=== PATIENT | male | born 1940 | race African-American/Black ===

== ENCOUNTER 2016-11-05 19:03 | Inpatient (IN) | payer OTHER, MEDICARE ==
[~2016-11-05] VITALS: Ht 165.1 cm; Wt 86.0 kg
[2016-11-05 22:27] VITALS: PULSE 78; RESP 18; O2SAT 100
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
[2016-11-05] MEDS ORDERED: LORazepam 2 MG/ML VIAL IM ONE (23:00)
[2016-11-05] MEDS ORDERED: OLANZapine IM 10 MG VIAL IM ONE (23:00)
[2016-11-06 00:17] LABS: ALT (GPT) 19 U/L (12-78); ANION GAP 5 MEQ/L (5-15); AST (GOT) 20 U/L (15-37); BASOPHIL % 0.3 % (0.0-2.0); BICARBONATE 35.4 MEQ/L (21.0-32.0); BLOOD UREA NITROGEN 8 MG/DL (7-18); CHLORIDE 105 MEQ/L (98-107); EOSINOPHIL % 0.5 % (0.0-4.0); GLOMERULAR FILTRATION RATE 82 ML/MIN (>89); HEMATOCRIT 40.8 % (39.0-51.0); HEMO FLAGS DIFF FINAL; LYMPH % 27.9 % (9.0-44.0); LYMPHOCYTE # 1.9 TH/MM3 (1.0-4.8); MEAN CELL VOLUME 92.3 FL (80.0-100.0); MEAN CORPUSCULAR HEMOGLOBIN 31.2 PG (27.0-34.0); MEAN CORPUSCULAR HGB CONC 33.8 % (32.0-36.0); MONO % 13.5 % (0.0-8.0); NEUT % 57.8 % (16.0-70.0); PLATELET COUNT 185 TH/MM3 (150-450); POTASSIUM 3.5 MEQ/L (3.5-5.1); RED BLOOD COUNT 4.42 MIL/MM3 (4.50-5.90); RED CELL DISTRIBUTION WIDTH 13.7 % (11.6-17.2); SODIUM (NA) 145 MEQ/L (136-145); WHITE BLOOD COUNT 6.9 TH/MM3 (4.0-11.0)
[2016-11-06 00:19] LABS: ALKALINE PHOSPHATASE 111 U/L (45-117); TOTAL BILIRUBIN ADULT 0.9 MG/DL (0.2-1.0)
[2016-11-06 00:34] LABS: ACETAMINOPHEN LESS THAN 2.0 MCG/ML (10.0-30.0)
[2016-11-06 01:00] VITALS: BP 167/88; PULSE 78; RESP 16; O2SAT 99
[2016-11-06] MEDS ORDERED: LORazepam 2 MG/ML VIAL IM ONE ×2 (04:30→22:30)
[2016-11-06] MEDS ORDERED: OLANZapine IM 10 MG VIAL IM ONE ×2 (04:30→22:30)
[2016-11-06 05:00] VITALS: BP 171/86; PULSE 84; RESP 16; O2SAT 97
[2016-11-06 05:09] LABS: BLOOD, URINE TRACE (NEG); COMMENT (UR) CULT NOT INDICATED; CULTURE IF INDICATED CULT NOT INDICATED; GLUCOSE,URINE TRACE mg/dL (NEG); KETONE, URINE NEG (NEG); MUCUS URINE FEW /lpf (OCC); NITRITE,URINE NEG (NEG); PH, URINE 6.5 (5.0-8.5); SQUAMOUS EPITHELIAL CELL URINE <1 /hpf (0-5); URINE COLOR YELLOW (YELLW/STRAW)
[2016-11-06] MEDS ORDERED: ACETAMINOPHEN 325 MG TAB PO PRN (10:00)
[2016-11-06] MEDS ORDERED: MAGNESIUM HYDROXIDE SUSP 30 ML CUP PO PRN (10:00)
[2016-11-06] MEDS ORDERED: ALUMINUM/MAGNESIUM/SIMETH 30 ML CUP PO PRN (10:00)
[2016-11-06 11:00] VITALS: BP 190/90; PULSE 55; RESP 16; TEMP 97.6; O2SAT 95
[2016-11-06] MEDS: NICOTINE 21 MG/24 HR PATCH T-DERMAL SCH (12:00)
[2016-11-06 18:00] VITALS: BP 137/70; PULSE 66; TEMP 97.8; O2SAT 97
[2016-11-06] MEDS: REMOVE OLD NICOTINE PATCH T-DERMAL SCH (21:00)
[2016-11-06] MEDS ORDERED: OLANZapine IM 10 MG VIAL IM SCH (22:45)
[2016-11-06] MEDS ORDERED: LORazepam 2 MG/ML VIAL IM SCH (22:45)
[2016-11-07 05:39] VITALS: BP 170/74; PULSE 72; RESP 18; TEMP 97.4
[2016-11-07] MEDS: NICOTINE 21 MG/24 HR PATCH T-DERMAL SCH (09:00)
[2016-11-07] MEDS ORDERED: cloNIDine HCL 0.2 MG TAB PO ONE (13:30)
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
[2016-11-07] MEDS: REMOVE OLD NICOTINE PATCH T-DERMAL SCH (20:26)
[2016-11-08 05:35] VITALS: BP 148/56; PULSE 53; RESP 18; TEMP 98.1; O2SAT 99
[2016-11-08] MEDS: NICOTINE 21 MG/24 HR PATCH T-DERMAL SCH (09:00)
[2016-11-08] MEDS: REMOVE OLD NICOTINE PATCH T-DERMAL SCH (09:26)
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
[2016-11-08 18:00] VITALS: PULSE 82; RESP 18; TEMP 98.1; O2SAT 96
[2016-11-08] MEDS: OLANZapine ODT 5 MG TAB PO SCH (22:22)
[2016-11-09] MEDS: NICOTINE 21 MG/24 HR PATCH T-DERMAL SCH (09:00)
[2016-11-09] MEDS: OLANZapine ODT 5 MG TAB PO SCH ×2 (09:00→21:00)
--- NOTE | 2016-11-09 13:10 | HHI.PYPN ---
Subjective Remarks Patient seen in dayroom with medical student Chetan, patient continues confused disoriented though alert pleasant at this time. Compliant medications. For now continue treatment Review of Systems Except as stated in HPI: all other systems reviewed are Neg Objective Alert: Yes [place]: Person Mood: Anxious, Calm (vaguely) Affect: Other (good range and intensity of his affect) Memory Intact: Comment (very poor) Hallucinations: Other (denies) Delusions: No Delusion Type: Other (somewhat vigilant) Suicidal: Ideation (denies) Homicidal: Ideation (denies) Insight/Judgment Poor Vitals/IOs Vital Signs Date Time Temp Pulse Resp B/P Pulse Ox O2 Delivery O2 Flow Rate FiO2 11/08/16 18:00 98.1 82 18 96 11/08/16 05:35 148/56 11/06/16 05:00 Room Air Intake and Output 11/08/16 11/08/16 11/09/16 08:00 16:00 00:00 Intake Total 0 ml 240 ml 600 ml Output Total 2 ml Balance 0 ml 240 ml 598 ml Assessment & Plan Problem List: (1) Dementia ICD Code: F03.90 Assessment & Plan Estimated LOS: days patient continues to Mentadent confused though no significant behavioral problems at this time, compliant medications. Justification for Cont. Inpt. This time patient will decompensate the placed in the lower level of care Discharge Planning To be determined Problem Qualifiers (1) Dementia: Qualified Code: G30.1 - Late onset Alzheimer's disease without behavioral disturbance Gregorio Haile MD Nov 09, 2016 13:10
[2016-11-09 17:46] VITALS: BP 149/77; PULSE 63; RESP 20; O2SAT 96
[2016-11-09] MEDS: REMOVE OLD NICOTINE PATCH T-DERMAL SCH (21:00)
[2016-11-10] MEDS: NICOTINE 21 MG/24 HR PATCH T-DERMAL SCH (09:00)
[2016-11-10] MEDS: OLANZapine ODT 5 MG TAB PO SCH ×3 (09:37→21:22)
--- NOTE | 2016-11-10 11:20 | HHI.PYPN ---
Subjective Remarks Patient seen in day room with nurse cally, patient alert diffusely confused somewhat more verbal with rapid somewhat pressured speech markedly disorganized. Focused somewhat on his possessions and his money. Needed reassurance by the staff that he was safe in our security department. Patient compliant medication Review of Systems Except as stated in HPI: all other systems reviewed are Neg Objective Alert: Yes [place]: Person Mood: Anxious, Calm (vaguely) Affect: Other (good range and intensity of his affect) Memory Intact: Comment (very poor) Hallucinations: Other (denies) Delusions: No Delusion Type: Other (somewhat vigilant) Suicidal: Ideation (denies) Homicidal: Ideation (denies) Insight/Judgment Poor Vitals/IOs Vital Signs Date Time Temp Pulse Resp B/P Pulse Ox O2 Delivery O2 Flow Rate FiO2 11/09/16 17:46 63 20 149/77 96 11/08/16 18:00 98.1 Intake and Output 11/09/16 11/09/16 11/10/16 08:00 16:00 00:00 Intake Total 120 ml 720 ml 1950 ml Balance 120 ml 720 ml 1950 ml Assessment & Plan Problem List: (1) Dementia ICD Code: F03.90 Assessment & Plan Estimated LOS: days patient continues confused and demented with episodes of some mild increased irritability though he is redirectable. For now continue treatment Justification for Cont. Inpt. 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
[2016-11-10 18:00] VITALS: BP 154/69; PULSE 74; RESP 19; TEMP 90; O2SAT 98
[2016-11-10] MEDS: REMOVE OLD NICOTINE PATCH T-DERMAL SCH (21:00)
[2016-11-11 06:05] VITALS: BP 97/58; PULSE 57; RESP 18; TEMP 98.5; O2SAT 97
[2016-11-11] MEDS: NICOTINE 21 MG/24 HR PATCH T-DERMAL SCH (08:23)
[2016-11-11] MEDS: OLANZapine ODT 5 MG TAB PO SCH ×3 (09:00→17:13)
--- NOTE | 2016-11-11 10:20 | HHI.PYPN ---
Subjective Remarks [place] retained by Flake Drier Duane, chart review, patient continues markedly confused disoriented with rapid pressured speech that is markedly disorganized. There is a vigilance and irritability that lavers this though he said no physical he assaultive behaviors. Will increase Zyprexa to 5 mg 3 times a day Review of Systems Except as stated in HPI: all other systems reviewed are Neg Objective Alert: Yes [place]: Person Mood: Anxious, Calm (vaguely) Affect: Other (good range and intensity of his affect) Memory Intact: Comment (very poor) Hallucinations: Other (denies) Delusions: No Delusion Type: Other (somewhat vigilant) Suicidal: Ideation (denies) Homicidal: Ideation (denies) Insight/Judgment Very poor Vitals/IOs Vital Signs Date Time Temp Pulse Resp B/P Pulse Ox O2 Delivery O2 Flow Rate FiO2 11/11/16 06:05 98.5 57 18 97/58 97 Intake and Output 11/10/16 11/10/16 11/11/16 08:00 16:00 00:00 Intake Total 240 ml 240 ml 720 ml Balance 240 ml 240 ml 720 ml Assessment & Plan Problem List: (1) Dementia ICD Code: F03.90 Assessment & Plan Estimated LOS: days patient continues demented confused with rapid pressured speech some mild irritability and intrusiveness needing frequent redirection. She medication adjustment above Justification for Cont. Inpt. 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
[2016-11-11] MEDS: LORazepam 2 MG/ML VIAL - age > 65 yrs IM PRN (14:10)
[2016-11-11 20:50] VITALS: BP 145/71; PULSE 74; RESP 18; TEMP 98.4; O2SAT 98
[2016-11-12 04:41] VITALS: BP 136/68; PULSE 72; RESP 17; TEMP 100.5; O2SAT 93
[2016-11-12 06:09] VITALS: BP 136/68; PULSE 72; RESP 17; TEMP 100.5; O2SAT 93
[2016-11-12] MEDS: OLANZapine ODT 5 MG TAB PO SCH (09:00)
[2016-11-12 10:29] VITALS: TEMP 97.9
--- NOTE | 2016-11-12 12:07 | HHI.PYPN ---
Subjective Remarks Patient seen in day room with nurse Yolanda and medical student Chetan. Chart reviewed Patient showing noncompliance with medication. He continues intrusive perseverative marked paranoid overlay. Will decrease Zyprexa to 10 mg twice a day orally and refuses that 10 mg IM in its place Review of Systems Except as stated in HPI: all other systems reviewed are Neg Objective Alert: Yes [place]: Person Mood: Anxious, Calm (vaguely) Affect: Other (good range and intensity of his affect) Memory Intact: Comment (very poor) Hallucinations: Other (denies) Delusions: No Delusion Type: Other (somewhat vigilant) Suicidal: Ideation (denies) Homicidal: Ideation (denies) Insight/Judgment Very poor Vitals/IOs Vital Signs Date Time Temp Pulse Resp B/P Pulse Ox O2 Delivery O2 Flow Rate FiO2 11/12/16 10:29 97.9 11/12/16 06:09 72 17 136/68 93 Intake and Output 11/11/16 11/11/16 11/12/16 08:00 16:00 00:00 Intake Total 0 ml 360 ml 720 ml Balance 0 ml 360 ml 720 ml Assessment & Plan Problem List: (1) Dementia ICD Code: F03.90 Assessment & Plan Estimated LOS: days patient continues somewhat psychotic delusional intrusive and labile. She medication adjustment above Justification for Cont. Inpt. 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
[2016-11-12] MEDS: OLANZapine ODT 10 MG TAB PO SCH ×2 (13:00→22:37)
[2016-11-12] MEDS ORDERED: OLANZapine IM 10 MG VIAL IM PRN (13:00)
[2016-11-12 17:54] VITALS: BP 154/77; PULSE 76; RESP 16; TEMP 97.8; O2SAT 99
[2016-11-13 05:56] VITALS: BP 131/65; PULSE 53; RESP 18; TEMP 98.3; O2SAT 99
[2016-11-13] MEDS: OLANZapine ODT 10 MG TAB PO SCH ×4 (10:12→21:17)
--- NOTE | 2016-11-13 12:48 | HHI.PYPN ---
Subjective Remarks Patient was seen and case discussed with nursing. Patient is alert and oriented 1. He is pressured with flight of ideas. When asked about suicidal thoughts he is irritable and paranoid and religiously preoccupied. Denies suicidal thoughts and is angry that I would ask. Compliant with his medications. Objective Alert: Yes [place]: Person Mood: Agitated Affect: Labile Memory Intact: Comment (very poor) Hallucinations: Other (denies) Delusions: No Delusion Type: Other (somewhat vigilant) Suicidal: Ideation (denies) Homicidal: Ideation (denies) Insight/Judgment Poor Vitals/IOs Vital Signs Date Time Temp Pulse Resp B/P Pulse Ox O2 Delivery O2 Flow Rate FiO2 11/13/16 05:56 98.3 53 18 131/65 99 Intake and Output 11/12/16 11/12/16 11/13/16 08:00 16:00 00:00 Intake Total 3540 ml 480 ml Balance 3540 ml 480 ml Assessment & Plan Problem List: (1) Dementia ICD Code: F03.90 Assessment & Plan Continue current treatment plan Justification for Cont. Inpt. 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
[2016-11-13 19:41] VITALS: BP 161/84; PULSE 68; RESP 18; O2SAT 99
[2016-11-14 06:16] VITALS: BP 139/66; PULSE 67; RESP 17; TEMP 99.1; O2SAT 99
[2016-11-14] MEDS: OLANZapine ODT 10 MG TAB PO SCH ×2 (08:45→21:00)
--- NOTE | 2016-11-14 12:50 | HHI.PYPN ---
Subjective Remarks Patient was seen and case discussed with nursing. Patient continues to be exit seeking. He continues to be hyperverbal and has difficulty answering questions appropriately. Continues to think that him and his built part of this hospital. Is alert and oriented 2, does not know the date and president. His compliant with his medications. Behaving well on the unit Objective Alert: Yes Ward: Person, Place Mood: Calm Affect: Labile Memory Intact: Comment (very poor) Hallucinations: Other (denies) Delusions: No Delusion Type: Other (somewhat vigilant) Suicidal: Ideation (denies) Homicidal: Ideation (denies) Insight/Judgment Poor Vitals/IOs Vital Signs Date Time Temp Pulse Resp B/P Pulse Ox O2 Delivery O2 Flow Rate FiO2 11/14/16 06:16 99.1 67 17 139/66 99 Intake and Output 11/13/16 11/13/16 11/14/16 08:00 16:00 00:00 Intake Total 480 ml 1080 ml Balance 480 ml 1080 ml Assessment & Plan Problem List: (1) Dementia ICD Code: F03.90 Assessment & Plan Continue current treatment plan Justification for Cont. Inpt. Patient will decompensate in a less restrictive setting Problem Qualifiers (1) Dementia: Qualified Code: G30.1 - Late onset Alzheimer's disease without behavioral disturbance Anuel Leon DO Nov 14, 2016 12:50
--- NOTE | 2016-11-15 08:24 | HHI.PYPN ---
Subjective Remarks Patient seen in day room with nurse Erica, is calm with me. Continues hyper verbal with perseveration on his vehicle, his money, and I'll he sees people are treating him. However his mis behaviors are essentially verbal. He is no physical aggression noted that at times he appears somewhat intimidating. Staff states this behaviors occur more towards afternoon and evening. Will adjust dosage and timing of Zyprexa to 10 mg by mouth at noon and at 6 PM. And if he refuses to be given Zyprexa 10 mg IM in its place Review of Systems Except as stated in HPI: all other systems reviewed are Neg Objective Alert: Yes [place]: Person, Place Mood: Calm Affect: Labile Memory Intact: Comment (very poor) Hallucinations: Other (denies) Delusions: No Delusion Type: Other (somewhat vigilant) Suicidal: Ideation (denies) Homicidal: Ideation (denies) Insight/Judgment Very poor Vitals/IOs Vital Signs Date Time Temp Pulse Resp B/P Pulse Ox O2 Delivery O2 Flow Rate FiO2 11/14/16 06:16 99.1 67 17 139/66 99 Intake and Output 11/14/16 11/14/16 11/15/16 08:00 16:00 00:00 Intake Total 0 ml 1920 ml Balance 0 ml 1920 ml Assessment & Plan Problem List: (1) Dementia ICD Code: F03.90 Assessment & Plan Estimated LOS: days patient continues markedly confused and demented, intrusive loud and paranoid. She medication adjustments above Justification for Cont. Inpt. 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
[2016-11-15] MEDS: OLANZapine ODT 10 MG TAB PO SCH ×2 (12:00→17:43)
--- NOTE | 2016-11-15 12:09 | PD.TTN ---
Present for Treatment Team Treatment Team Staff: Provider, Nurse, Psych Therapist, Occupational Therapist Patient Problems 1. Discharge planning 2. Medication compliance 3. Knowledge deficit 4. Lack of coping skills Progress Toward Goals Provider Input: Patient is anxious, refusing his medication, family will need to be contact Nurse Input: Patient is verabally aggressive, with an agitated mood, pacing and seeking an exit. Psych Therapist Input: Counselor will contact Rose Marie Martin acting POA while Berna Coles is in the to discuss discharge Occupational Therapist Input: Patient is too restless and agitated to participate with activities. Elysia Bermudez [facility] Nov 15, 2016 12:09
[2016-11-15] MEDS: OLANZapine IM 10 MG VIAL IM SCH ×2 (12:47→17:44)
[2016-11-15 18:00] VITALS: BP 148/76; PULSE 79; RESP 18; O2SAT 100
[2016-11-15] MEDS: LORazepam 0.5 MG TAB age > 65 yrs PO PRN (20:29)
[2016-11-15 21:30] VITALS: BP 88/81; PULSE 60; RESP 14; O2SAT 97
--- NOTE | 2016-11-16 08:36 | HHI.PYPN ---
Subjective Remarks Patient seen in [place] with nurse Erica and medical student: This, patient continues to perseverate about his van which located that he needs to inspected the make sure that it's okay. Staff states his focus on that appears somewhat obsessive to. He also has shown some poor hygiene and not showering in a number of days. Staff are working with him to get in the shower. Otherwise patient continues diffusely confused at times little bit irritable but no other behavioral issues. Will add Prozac 20 mg of the liquid preparation daily. Review of Systems Except as stated in HPI: all other systems reviewed are Neg Objective Alert: Yes [place]: Person, Place Mood: Calm Affect: Labile Memory Intact: Comment (very poor) Hallucinations: Other (denies) Delusions: No Delusion Type: Other (somewhat vigilant) Suicidal: Ideation (denies) Homicidal: Ideation (denies) Insight/Judgment Very poor Vitals/IOs Vital Signs Date Time Temp Pulse Resp B/P Pulse Ox O2 Delivery O2 Flow Rate FiO2 11/15/16 21:30 60 14 88/81 97 11/14/16 06:16 99.1 Intake and Output 11/15/16 11/15/16 11/16/16 08:00 16:00 00:00 Intake Total 720 ml 2160 ml Balance 720 ml 2160 ml Assessment & Plan Problem List: (1) Dementia ICD Code: F03.90 Assessment & Plan Estimated LOS: days patient continues demented and confused, continues to focus a perseverate on his van. She medication adjustment above Justification for Cont. Inpt. 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
[2016-11-16] MEDS: FLUoxetine HCL LIQUID 20 MG/5 ML CUP PO SCH (09:00)
[2016-11-16] MEDS: OLANZapine IM 10 MG VIAL IM SCH ×2 (12:00→18:00)
[2016-11-16] MEDS: OLANZapine ODT 10 MG TAB PO SCH ×2 (12:33→18:09)
[2016-11-16 18:38] VITALS: BP 146/66; PULSE 85; RESP 18; O2SAT 95
[2016-11-17 04:53] VITALS: BP 129/57; PULSE 59; RESP 16; TEMP 98; O2SAT 95
[2016-11-17] MEDS: FLUoxetine HCL LIQUID 20 MG/5 ML CUP PO SCH (09:00)
--- NOTE | 2016-11-17 10:16 | HHI.PYPN ---
Subjective Remarks Patient seen in his room with nurse Hortensia counselor Susan. Chart review. Patient continues to perseverate about his van and his money becoming somewhat loud and irritable though there is no physical confrontation her physical behaviors noted. Is showing mixed compliance with his medication needing some encouragement by the nurses from to be compliant Review of Systems Except as stated in HPI: all other systems reviewed are Neg Objective Alert: Yes [place]: Person, Place Mood: Calm Affect: Labile Memory Intact: Comment (very poor) Hallucinations: Other (denies) Delusions: No Delusion Type: Other (somewhat vigilant) Suicidal: Ideation (denies) Homicidal: Ideation (denies) Insight/Judgment Poor Vitals/IOs Vital Signs Date Time Temp Pulse Resp B/P Pulse Ox O2 Delivery O2 Flow Rate FiO2 11/17/16 04:53 98.0 59 16 129/57 95 Intake and Output 11/16/16 11/16/16 11/16/16 07:59 15:59 23:59 Intake Total 240 ml 1680 ml Balance 240 ml 1680 ml Assessment & Plan Problem List: (1) Dementia ICD Code: F03.90 Assessment & Plan Estimated LOS: days patient continues confused disoriented, with some irritability related to his perseveration related to his van and his finances. For now continue treatment Justification for Cont. Inpt. At this time patient will decompensate the placed at a lower level of care Discharge Planning To be determined Problem Qualifiers (1) Dementia: Qualified Code: G30.1 - Late onset Alzheimer's disease without behavioral disturbance Gregorio Haile MD Nov 17, 2016 10:16
[2016-11-17] MEDS: OLANZapine ODT 10 MG TAB PO SCH ×2 (10:39→18:00)
[2016-11-17] MEDS: OLANZapine IM 10 MG VIAL IM SCH ×2 (10:39→18:00)
[2016-11-17 18:00] VITALS: BP 153/69; PULSE 85; RESP 19; TEMP 97.5; O2SAT 99
[2016-11-18 06:24] VITALS: BP 123/64; PULSE 70; RESP 19; TEMP 98.9; O2SAT 96
[2016-11-18] MEDS: FLUoxetine HCL LIQUID 20 MG/5 ML CUP PO SCH (08:54)
--- NOTE | 2016-11-18 10:28 | HHI.PYPN ---
Subjective Remarks Patient seen in day room with nurse Neeta and medical student Chetan, chart reviewed, patient compliant with medications though at times needs encouragement. He continues to perseverate on his plan. And financial issues. Though is somewhat softer less intrusive today Review of Systems Except as stated in HPI: all other systems reviewed are Neg Objective Alert: Yes [place]: Person, Place Mood: Calm Affect: Labile Memory Intact: Comment (very poor) Hallucinations: Other (denies) Delusions: No Delusion Type: Other (somewhat vigilant) Suicidal: Ideation (denies) Homicidal: Ideation (denies) Insight/Judgment Very poor Vitals/IOs Vital Signs Date Time Temp Pulse Resp B/P Pulse Ox O2 Delivery O2 Flow Rate FiO2 11/18/16 06:24 98.9 70 19 123/64 96 Intake and Output 11/17/16 11/17/16 11/18/16 08:00 16:00 00:00 Intake Total 480 ml 0 ml Balance 480 ml 0 ml Assessment & Plan Problem List: (1) Dementia ICD Code: F03.90 Assessment & Plan Estimated LOS: days patient continues demented and confused, somewhat intense and perseverative. But less intrusive today continues compliant medications with encouragement Justification for Cont. Inpt. 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
[2016-11-18] MEDS: OLANZapine ODT 10 MG TAB PO SCH ×2 (12:00→18:00)
[2016-11-18] MEDS: OLANZapine IM 10 MG VIAL IM SCH ×2 (12:00→18:00)
[2016-11-18 19:34] VITALS: BP 132/61; PULSE 73; RESP 19; TEMP 98.8; O2SAT 96
[2016-11-19] MEDS: FLUoxetine HCL LIQUID 20 MG/5 ML CUP PO SCH (08:34)
[2016-11-19] MEDS ORDERED: OLANZapine IM 10 MG VIAL IM PRN (09:57)
[2016-11-19] MEDS: OLANZapine ODT 10 MG TAB PO SCH ×2 (11:39→17:36)
[2016-11-19] MEDS ORDERED: LORazepam 2 MG/ML VIAL IM STA (15:27)
[2016-11-19] MEDS ORDERED: HALOPERIDOL LACTATE 5 MG/ML AMP IM STA (15:27)
--- NOTE | 2016-11-19 15:40 | HHI.PYPN ---
Subjective Remarks Patient seen in dayroom barricaded himself behind chairs. Prior to this staff was offering patient up when necessary he became more and more angry refuse to go to his room refuse a cooperative the staff he pushed she didn't hit to the staff. Prior to barricaded himself the day room. I feel at the present time patient behaviors putting himself and other patients had significant serious risk thus have ordered Haldol 10 mg IM and Ativan 1 mg IM to be given now patient to be transferred to the 2700 unit for the safety of the staff the other patient's and himself Review of Systems Except as stated in HPI: all other systems reviewed are Neg Objective Alert: Yes [place]: Person, Place Mood: Agitated, Angry, Calm, Oppositional Affect: Labile, Other (increase range intensity of his affect) Memory Intact: Comment (very poor) Hallucinations: Other (denies) Delusions: No Delusion Type: Other (somewhat vigilant) Suicidal: Ideation (denies) Homicidal: Ideation (denies) Insight/Judgment Very poor Vitals/IOs Vital Signs Date Time Temp Pulse Resp B/P Pulse Ox O2 Delivery O2 Flow Rate FiO2 11/18/16 19:34 98.8 73 19 132/61 96 Intake and Output 11/18/16 11/18/16 11/18/16 07:59 15:59 23:59 Intake Total 960 ml 720 ml Balance 960 ml 720 ml Assessment & Plan Problem List: (1) Dementia ICD Code: F03.90 Assessment & Plan Estimated LOS: days patient remains confused demented though with increased anger agitation aggressive assaultive behavior. Necessitating ETO at this time , necessitating transfer to 2700 unit for his safety and the safety of staff and other patient's Justification for Cont. Inpt. This time patient decompensate and placed in a lower level of care Discharge Planning To be determined Problem Qualifiers (1) Dementia: Qualified Code: G30.1 - Late onset Alzheimer's disease without behavioral disturbance Gregorio Haile MD Nov 19, 2016 15:40
[2016-11-20 04:00] VITALS: BP 157/76; PULSE 73; RESP 18; TEMP 96.9; O2SAT 97
[2016-11-20] MEDS: FLUoxetine HCL LIQUID 20 MG/5 ML CUP PO SCH (08:54)
[2016-11-20] MEDS: OLANZapine ODT 10 MG TAB PO SCH ×2 (11:43→16:56)
[2016-11-20 18:00] VITALS: BP 160/74; PULSE 73; RESP 18; TEMP 98.3; O2SAT 98
[2016-11-21] MEDS: FLUoxetine HCL LIQUID 20 MG/5 ML CUP PO SCH (08:42)
[2016-11-21] MEDS: OLANZapine ODT 10 MG TAB PO SCH ×2 (11:34→18:00)
--- NOTE | 2016-11-21 14:18 | HHI.PYPN ---
Subjective Remarks Pt seen and discussed with staff. He slept through the night and has been calm and cooperative today. He is religiously preoccupied during exam and sstates the work of the devil is around us all. No SI/HI Objective Alert: Yes [place]: Person, Place Mood: Calm Affect: Restricted Memory Intact: Comment (very poor) Hallucinations: Other (denies) Delusions: No Delusion Type: Other (somewhat vigilant) Suicidal: Ideation (denies) Homicidal: Ideation (denies) Insight/Judgment poor Vitals/IOs Vital Signs Date Time Temp Pulse Resp B/P Pulse Ox O2 Delivery O2 Flow Rate FiO2 11/20/16 18:00 98.3 73 18 160/74 98 Intake and Output 11/20/16 11/20/16 11/21/16 08:00 16:00 00:00 Intake Total 720 ml 240 ml Balance 720 ml 240 ml Assessment & Plan Problem List: (1) Dementia ICD Code: F03.90 Assessment & Plan Continue current tx plan. Estimated LOS: days Justification for Cont. Inpt. 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
[2016-11-22] MEDS: FLUoxetine HCL LIQUID 20 MG/5 ML CUP PO SCH (08:01)
[2016-11-22] MEDS: OLANZapine ODT 10 MG TAB PO SCH ×3 (11:38→16:40)
--- NOTE | 2016-11-22 12:20 | PD.TTN ---
Present for Treatment Team Treatment Team Staff: Provider (Dr. Haile), Psych Therapist (TIM Epps), Ancillary Staff (Rec. Cassandra Therapy) Patient Problems 1. Discharge planning 2. Medication compliance 3. Knowledge deficit 4. Lack of coping skills Progress Toward Goals Provider Input: Dr. Haile reported the patient's mental status remains unchanged. According to Dr. Haile the patient was escorted to the 2700 unit over the weeknd due to aggressive behavior towards staff. Patient was able to calm down and was escorted abck to 2500 after receiving an injection and calming himself on the 2700 unit. Psych Therapist Input: Counselor reported the patient continues to be obsessed with the location of his van and his money. Patient is unable to be reassured that his posessions are safe. He is selectively compliant with medications. Ancillary Staff Input: Nicky reported the patient is not attending recreational threapy activities. Documentation Scribe: TIM Epps Date Resolved: Nov 22, 2016 Susan Toledo Nov 22, 2016 12:19
--- NOTE | 2016-11-22 14:08 | HHI.PYPN ---
Subjective Remarks Patient discussed with treatment team, patient seen in day room with nurse bernardo ordonez , chart reviewed. Patient continues to perseverate on his finances and his van. Also showing marked reluctance to be cooperative with medication. Thus we are unable to give appropriate medication consistently. Need to consider alternatives. Review of Systems Except as stated in HPI: all other systems reviewed are Neg Objective Alert: Yes [place]: Person, Place Mood: Calm Affect: Restricted Memory Intact: Comment (very poor) Hallucinations: Other (denies) Delusions: No Delusion Type: Other (somewhat vigilant) Suicidal: Ideation (denies) Homicidal: Ideation (denies) Insight/Judgment Very poor Vitals/IOs Vital Signs Date Time Temp Pulse Resp B/P Pulse Ox O2 Delivery O2 Flow Rate FiO2 11/20/16 18:00 98.3 73 18 160/74 98 Intake and Output 11/21/16 11/21/16 11/22/16 08:00 16:00 00:00 Intake Total 1440 ml 240 ml Balance 1440 ml 240 ml Assessment & Plan Problem List: (1) Dementia ICD Code: F03.90 Assessment & Plan Estimated LOS: days patient continues significantly confused disoriented at times labile intrusive and somewhat intimidating. He also remains mixed compliance medication. Justification for Cont. Inpt. At this time patient will decompensate if placed on a lower level of care Discharge Planning To be determined Problem Qualifiers (1) Dementia: Qualified Code: G30.1 - Late onset Alzheimer's disease without behavioral disturbance Gregorio Haile MD Nov 22, 2016 14:08
[2016-11-22] MEDS: LORazepam 0.5 MG TAB age > 65 yrs PO PRN (15:09)
[2016-11-22 18:00] VITALS: BP 176/67; PULSE 80; RESP 18; O2SAT 97
[2016-11-22 20:00] VITALS: BP 123/56; PULSE 55; RESP 18; O2SAT 98
[2016-11-23] MEDS: FLUoxetine HCL LIQUID 20 MG/5 ML CUP PO SCH (09:04)
--- NOTE | 2016-11-23 10:56 | RADRPT ---
EXAM DATE/TIME: 11/23/2016 10:21 [place] COMPARISON: No previous studies available for comparison. INDICATIONS : Patient is short of breath. MEDICAL HISTORY : None. SURGICAL HISTORY : None. ENCOUNTER: Initial ACUITY: 1 day PAIN SCORE: 0/10 LOCATION: Bilateral chest FINDINGS: A single view of the chest demonstrates the lungs to be symmetrically aerated without evidence of mas s, infiltrate or effusion. The cardiomediastinal contours are unremarkable. Osseous structures demo nstrate degenerative changes in the a.c. joints and shoulders bilaterally. CONCLUSION: 1. No acute cardiopulmonary findings. Wenceslao Bashir MD on November 23, 2016 at 10:54 Board Certified Radiologist. This report was verified electronically.
--- NOTE | 2016-11-23 11:29 | HHI.PYPN ---
Subjective Remarks Patient seen in his room with nurse Daphnie, chart reviewed. Patient continues delusional focusing on his van and finances though today he is some more spiritual in his focus saying he is living at all in the hands of Shantanu. For now will increase oral Zyprexa to 15 mg twice a day continue IM at 10 mg if he refuses the oral Review of Systems Except as stated in HPI: all other systems reviewed are Neg Objective Alert: Yes [place]: Person, Place Mood: Calm Affect: Restricted Memory Intact: Comment (very poor) Hallucinations: Other (denies) Delusions: No Delusion Type: Other (somewhat vigilant) Suicidal: Ideation (denies) Homicidal: Ideation (denies) Insight/Judgment Very poor Vitals/IOs Vital Signs Date Time Temp Pulse Resp B/P Pulse Ox O2 Delivery O2 Flow Rate FiO2 11/22/16 20:00 55 18 123/56 98 11/20/16 18:00 98.3 Intake and Output 11/22/16 11/22/16 11/22/16 07:59 15:59 23:59 Intake Total 600 ml 960 ml 600 ml Balance 600 ml 960 ml 600 ml Assessment & Plan Problem List: (1) Dementia ICD Code: F03.90 Assessment & Plan Estimated LOS: days patient continues confused demented at times somewhat aggressive and intimidating. See medication adjustment above Justification for Cont. Inpt. At this time patient will decompensate if placed in a lower level of care Discharge Planning To be determined Problem Qualifiers (1) Dementia: Qualified Code: G30.1 - Late onset Alzheimer's disease without behavioral disturbance Gregorio Haile MD Nov 23, 2016 11:29
[2016-11-23] MEDS: OLANZapine ODT 15 MG TAB PO SCH ×2 (12:00→17:56)
[2016-11-23] MEDS: OLANZapine IM 10 MG VIAL IM SCH ×2 (12:00→17:56)
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
[2016-11-24] MEDS: FLUoxetine HCL LIQUID 20 MG/5 ML CUP PO SCH (08:17)
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
[2016-11-24 09:50] LABS: BASOPHIL % 0.3 % (0.0-2.0); EOSINOPHIL # 0.1 TH/MM3 (0-0.4); EOSINOPHIL % 1.6 % (0.0-4.0); HEMATOCRIT 42.1 % (39.0-51.0); HEMO FLAGS DIFF FINAL; LYMPH % 44.4 % (9.0-44.0); LYMPHOCYTE # 2.1 TH/MM3 (1.0-4.8); MEAN CELL VOLUME 92.2 FL (80.0-100.0); MEAN CORPUSCULAR HEMOGLOBIN 30.8 PG (27.0-34.0); MEAN CORPUSCULAR HGB CONC 33.4 % (32.0-36.0); MONO % 12.2 % (0.0-8.0); NEUT % 41.5 % (16.0-70.0); PLATELET COUNT 198 TH/MM3 (150-450); RED BLOOD COUNT 4.56 MIL/MM3 (4.50-5.90); RED CELL DISTRIBUTION WIDTH 13.2 % (11.6-17.2); WHITE BLOOD COUNT 4.8 TH/MM3 (4.0-11.0)
[2016-11-24 10:13] LABS: ANION GAP 8 MEQ/L (5-15); AST (GOT) 22 U/L (15-37); BICARBONATE 28.1 MEQ/L (21.0-32.0); BLOOD UREA NITROGEN 13 MG/DL (7-18); CHLORIDE 103 MEQ/L (98-107); GLOMERULAR FILTRATION RATE 118 ML/MIN (>89); POTASSIUM 3.8 MEQ/L (3.5-5.1); SODIUM (NA) 139 MEQ/L (136-145)
[2016-11-24 10:15] LABS: ALT (GPT) 20 U/L (12-78)
[2016-11-24 10:24] LABS: ALKALINE PHOSPHATASE 97 U/L (45-117); HDL CHOLESTEROL 67.9 MG/DL (40.0-60.0); LDL CHOLESTEROL 121 MG/DL (0-99); TOTAL BILIRUBIN ADULT 0.7 MG/DL (0.2-1.0)
[2016-11-24] MEDS: OLANZapine ODT 15 MG TAB PO SCH ×2 (12:00→17:16)
[2016-11-24] MEDS: OLANZapine IM 10 MG VIAL IM SCH ×2 (12:00→17:16)
--- NOTE | 2016-11-24 14:50 | HHI.PYPN ---
Subjective Remarks Patient seen in day room with nurse Neeta, chart review, patient showing some improvement in his compliance with medication. Patient continues markedly confused disoriented, continues to perseverate on his van. And his money. Patient showing no insight at all at times is somewhat difficult to redirect at times is somewhat intimidating and intrusive Review of Systems Except as stated in HPI: all other systems reviewed are Neg Objective Alert: Yes [place]: Person, Place Mood: Calm Affect: Restricted Memory Intact: Comment (very poor) Hallucinations: Other (denies) Delusions: No Delusion Type: Other (somewhat vigilant) Suicidal: Ideation (denies) Homicidal: Ideation (denies) Insight/Judgment Very poor Labs Test 11/24/16 08:01 White Blood Count 4.8 TH/MM3 Red Blood Count 4.56 MIL/MM3 Hemoglobin 14.1 GM/DL Hematocrit 42.1 % Mean Corpuscular Volume 92.2 FL Mean Corpuscular Hemoglobin 30.8 PG Mean Corpuscular Hemoglobin 33.4 % Concent Red Cell Distribution Width 13.2 % Platelet Count 198 TH/MM3 Mean Platelet Volume 9.1 FL Neutrophils (%) (Auto) 41.5 % Lymphocytes (%) (Auto) 44.4 % Monocytes (%) (Auto) 12.2 % Eosinophils (%) (Auto) 1.6 % Basophils (%) (Auto) 0.3 % Neutrophils # (Auto) 2.0 TH/MM3 Lymphocytes # (Auto) 2.1 TH/MM3 Monocytes # (Auto) 0.6 TH/MM3 Eosinophils # (Auto) 0.1 TH/MM3 Basophils # (Auto) 0.0 TH/MM3 CBC Comment DIFF FINAL Differential Comment Sodium Level 139 MEQ/L Potassium Level 3.8 MEQ/L Chloride Level 103 MEQ/L Carbon Dioxide Level 28.1 MEQ/L Anion Gap 8 MEQ/L Blood Urea Nitrogen 13 MG/DL Creatinine 0.77 MG/DL Estimat Glomerular Filtration 118 ML/MIN Rate Random Glucose 89 MG/DL Calcium Level 9.4 MG/DL Total Bilirubin 0.7 MG/DL Aspartate Amino Transf 22 U/L (AST/SGOT) Alanine Aminotransferase 20 U/L (ALT/SGPT) Alkaline Phosphatase 97 U/L Total Protein 7.6 GM/DL Albumin 3.6 GM/DL Triglycerides Level 81 MG/DL Cholesterol Level 205 MG/DL LDL Cholesterol 121 MG/DL HDL Cholesterol 67.9 MG/DL Cholesterol/HDL Ratio 3.01 RATIO Thyroid Stimulating Hormone 0.482 uIU/ML 3rd Gen Vitals/IOs Vital Signs Date Time Temp Pulse Resp B/P Pulse Ox O2 Delivery O2 Flow Rate FiO2 11/22/16 20:00 55 18 123/56 98 11/20/16 18:00 98.3 Intake and Output 11/23/16 11/23/16 11/24/16 08:00 16:00 00:00 Intake Total 480 ml 2760 ml Balance 480 ml 2760 ml Assessment & Plan Problem List: (1) Dementia ICD Code: F03.90 Assessment & Plan Estimated LOS: days patient continues dementing confused and intrusive. Though some improvement in his compliance with medication Justification for Cont. Inpt. At this time patient Is a new Place the lower level of care Discharge Planning To be determined Problem Qualifiers (1) Dementia: Qualified Code: G30.1 - Late onset Alzheimer's disease without behavioral disturbance Gregorio Haile MD Nov 24, 2016 14:50
[2016-11-24] MEDS: cloNIDine HCL 0.1 MG TAB PO PRN (17:57)
[2016-11-24 18:00] VITALS: BP 184/92; PULSE 72; RESP 18; TEMP 98.3; O2SAT 97
[2016-11-24 18:52] VITALS: BP 117/61; PULSE 65
[2016-11-25 06:08] VITALS: BP 139/79; PULSE 64; RESP 18; TEMP 97.2; O2SAT 98
[2016-11-25] MEDS: FLUoxetine HCL LIQUID 20 MG/5 ML CUP PO SCH (09:00)
--- NOTE | 2016-11-25 10:34 | HHI.PYPN ---
Subjective Remarks Patient seen in day room with nurse Neeta, chart reviewed, patient compliant medications with staff encouragement. He continues to perseverate on his van less finances but less intense today Review of Systems Except as stated in HPI: all other systems reviewed are Neg Objective Alert: Yes [place]: Person, Place Mood: Calm Affect: Restricted Memory Intact: Comment (very poor) Hallucinations: Other (denies) Delusions: No Delusion Type: Other (somewhat vigilant) Suicidal: Ideation (denies) Homicidal: Ideation (denies) Insight/Judgment Very poor Vitals/IOs Vital Signs Date Time Temp Pulse Resp B/P Pulse Ox O2 Delivery O2 Flow Rate FiO2 11/25/16 06:08 97.2 64 18 139/79 98 Intake and Output 11/24/16 11/24/16 11/25/16 08:00 16:00 00:00 Intake Total 1440 ml 720 ml Balance 1440 ml 720 ml Assessment & Plan Problem List: (1) Dementia ICD Code: F03.90 Assessment & Plan Estimated LOS: days patient continues to attend confused so somewhat irritable and intense though less today, compliant medication Justification for Cont. Inpt. At this time patient will decompensate if place to the lower level of care Discharge Planning To be determined Problem Qualifiers (1) Dementia: Qualified Code: G30.1 - Late onset Alzheimer's disease without behavioral disturbance Gregorio Haile MD Nov 25, 2016 10:34
[2016-11-25] MEDS: OLANZapine ODT 15 MG TAB PO SCH ×2 (12:00→17:24)
[2016-11-25] MEDS: OLANZapine IM 10 MG VIAL IM SCH ×2 (12:00→17:25)
[2016-11-25] MEDS: cloNIDine HCL 0.1 MG TAB PO PRN ×2 (17:40→20:39)
[2016-11-25 18:00] VITALS: BP 185/79; PULSE 64; RESP 18; TEMP 97.5; O2SAT 98
[2016-11-26 02:00] VITALS: BP 120/62; PULSE 82
[2016-11-26 06:00] VITALS: BP 123/67; PULSE 63; RESP 20; TEMP 97.2
[2016-11-26] MEDS: FLUoxetine HCL LIQUID 20 MG/5 ML CUP PO SCH (09:00)
[2016-11-26] MEDS: LORazepam 0.5 MG TAB age > 65 yrs PO PRN ×2 (09:43→22:02)
[2016-11-26] MEDS: OLANZapine IM 10 MG VIAL IM SCH ×2 (12:00→18:00)
[2016-11-26] MEDS: OLANZapine ODT 15 MG TAB PO SCH ×2 (12:00→17:16)
--- NOTE | 2016-11-26 15:19 | HHI.PYPN ---
Subjective Remarks Patient seen in his room nurse Chris, chart reviewed, patient reluctant the compliant medications with encouragement. Patient continues somewhat loud intimidating focusing on his money in his van. Though his able to be deflected verbally. For now continue treatment Review of Systems Except as stated in HPI: all other systems reviewed are Neg Objective Alert: Yes [place]: Person, Place Mood: Calm Affect: Restricted Memory Intact: Comment (very poor) Hallucinations: Other (denies) Delusions: No Delusion Type: Other (somewhat vigilant) Suicidal: Ideation (denies) Homicidal: Ideation (denies) Insight/Judgment Poor Vitals/IOs Vital Signs Date Time Temp Pulse Resp B/P Pulse Ox O2 Delivery O2 Flow Rate FiO2 11/26/16 06:00 97.2 63 20 123/67 11/25/16 18:00 98 Intake and Output 11/25/16 11/25/16 11/25/16 07:59 15:59 23:59 Intake Total 0 ml 1200 ml 1200 ml Balance 0 ml 1200 ml 1200 ml Assessment & Plan Problem List: (1) Dementia ICD Code: F03.90 Assessment & Plan Estimated LOS: days patient continues confused demented intrusive somewhat delusional paranoid Justification for Cont. Inpt. 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
[2016-11-26 18:00] VITALS: BP 141/64; PULSE 70; RESP 18; TEMP 98.5; O2SAT 98
[2016-11-27 05:48] VITALS: BP 150/73; PULSE 63; RESP 16; TEMP 98.1; O2SAT 99
[2016-11-27] MEDS: FLUoxetine HCL LIQUID 20 MG/5 ML CUP PO SCH (08:46)
--- NOTE | 2016-11-27 09:45 | HHI.PYPN ---
Subjective Remarks Patient was seen and case discussed with nursing. Patient is alert and oriented 2. He remains with a fixed delusion that he built portions of this hospital including the floor. Is perseverant showing me the different avenues in the hallway. Compliant with medications behaving well on the unit. Objective Alert: Yes [place]: Person, Place Mood: Calm Affect: Blunted Memory Intact: Comment (very poor) Hallucinations: Other (denies) Delusions: No Delusion Type: Paranoid (fixed delusion that he built the hospital), Other ( somewhat vigilant) Suicidal: Ideation (denies) Homicidal: Ideation (denies) Insight/Judgment Poor Vitals/IOs Vital Signs Date Time Temp Pulse Resp B/P Pulse Ox O2 Delivery O2 Flow Rate FiO2 11/27/16 05:48 98.1 63 16 150/73 99 Intake and Output 11/26/16 11/26/16 11/26/16 07:59 15:59 23:59 Intake Total 0 ml 1680 ml 360 ml Balance 0 ml 1680 ml 360 ml Assessment & Plan Problem List: (1) Dementia ICD Code: F03.90 Assessment & Plan Continue current treatment plan Justification for Cont. Inpt. 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
[2016-11-27] MEDS: OLANZapine IM 10 MG VIAL IM SCH ×2 (12:00→17:04)
[2016-11-27] MEDS: OLANZapine ODT 15 MG TAB PO SCH ×2 (12:10→17:03)
[2016-11-27 20:00] VITALS: BP 122/63; PULSE 65; RESP 18; TEMP 97.5
[2016-11-28 06:00] VITALS: BP 148/73; PULSE 67; RESP 16; TEMP 97.1; O2SAT 98
[2016-11-28] MEDS: FLUoxetine HCL LIQUID 20 MG/5 ML CUP PO SCH (09:00)
[2016-11-28] MEDS: OLANZapine ODT 15 MG TAB PO SCH ×2 (12:00→17:59)
[2016-11-28] MEDS: OLANZapine IM 10 MG VIAL IM SCH ×2 (13:10→17:59)
--- NOTE | 2016-11-28 13:35 | HHI.PYPN ---
Subjective Remarks Patient was seen and case discussed with nursing. Today, patient is very perseverative on his van and its location. Remains with a fixed delusion that he felt the hospital. Otherwise he is compliant with his medications and behaving well. However, he is hesitant to take them with nursing. Objective Alert: Yes [place]: Person, Place Mood: Calm Affect: Blunted, Other (perseverative) Memory Intact: Comment (very poor) Hallucinations: Other (denies) Delusions: No Delusion Type: Paranoid (fixed delusion that he built the hospital), Other ( somewhat vigilant) Suicidal: Ideation (denies) Homicidal: Ideation (denies) Insight/Judgment Poor Vitals/IOs Vital Signs Date Time Temp Pulse Resp B/P Pulse Ox O2 Delivery O2 Flow Rate FiO2 11/28/16 06:00 97.1 67 16 148/73 98 Intake and Output 11/27/16 11/27/16 11/27/16 07:59 15:59 23:59 Intake Total 240 ml 480 ml Balance 240 ml 480 ml Assessment & Plan Problem List: (1) Dementia ICD Code: F03.90 Assessment & Plan Continue current treatment plan Justification for Cont. Inpt. 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
[2016-11-29 05:18] VITALS: BP 131/61; PULSE 61; RESP 17; TEMP 98.2; O2SAT 97
[2016-11-29] MEDS: FLUoxetine HCL LIQUID 20 MG/5 ML CUP PO SCH (09:00)
[2016-11-29] MEDS: OLANZapine IM 10 MG VIAL IM SCH (12:00)
[2016-11-29] MEDS: OLANZapine ODT 15 MG TAB PO SCH ×2 (12:51→18:00)
--- NOTE | 2016-11-29 15:43 | HHI.PYPN ---
Subjective Remarks Patient seen in [place] with Dr. Samuels. Chart reviewed. Patient continues markedly delusional intrusive angry threatening and intimidating. It appears the dosage of Zyprexa is not helping this patient sufficiently. Will change the Zyprexa to 30 mg at at bedtime. We'll add Haldol 2 mg at 8 AM and 4 PM to be given by mouth and if not taken by mouth to be given IM in its place Review of Systems Except as stated in HPI: all other systems reviewed are Neg Objective Alert: Yes [place]: Person, Place Mood: Calm Affect: Blunted, Other (perseverative) Memory Intact: Comment (very poor) Hallucinations: Other (denies) Delusions: No Delusion Type: Paranoid (fixed delusion that he built the hospital), Other ( somewhat vigilant) Suicidal: Ideation (denies) Homicidal: Ideation (denies) Insight/Judgment Very poor Vitals/IOs Vital Signs Date Time Temp Pulse Resp B/P Pulse Ox O2 Delivery O2 Flow Rate FiO2 11/29/16 05:18 98.2 61 17 131/61 97 Intake and Output 11/28/16 11/28/16 11/29/16 08:00 16:00 00:00 Intake Total 2880 ml Balance 2880 ml Assessment & Plan Problem List: (1) Dementia ICD Code: F03.90 Assessment & Plan Estimated LOS: days patient continues paranoid delusional intimidating and intrusive. She medication adjustments above Justification for Cont. Inpt. 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
[2016-11-29] MEDS: HALOPERIDOL 2 MG TAB PO SCH (16:00)
[2016-11-29 16:47] VITALS: BP 148/70; PULSE 62; RESP 18; TEMP 97.5; O2SAT 97
[2016-11-29] MEDS: LORazepam 2 MG/ML VIAL - age > 65 yrs IM PRN (17:59)
[2016-11-30 06:06] VITALS: BP 121/56; PULSE 69; RESP 20; TEMP 98.5; O2SAT 98
[2016-11-30] MEDS: HALOPERIDOL LACTATE 5 MG/ML AMP IM SCH ×2 (08:00→16:00)
[2016-11-30] MEDS: HALOPERIDOL 2 MG TAB PO SCH ×2 (08:00→16:43)
[2016-11-30] MEDS: FLUoxetine HCL LIQUID 20 MG/5 ML CUP PO SCH (09:00)
[2016-11-30] MEDS: LORazepam 2 MG/ML VIAL - age > 65 yrs IM PRN (09:17)
--- NOTE | 2016-11-30 10:40 | HHI.PYPN ---
Subjective Remarks Patient seen on unit with nurse Erica, chart review, compliant medications. Patient continues intrusive perseverating about his van his money and his . He continues somewhat intimidating with an underlying feelings of anger also. Patient is so far compliant with a new medications ordered yesterday Review of Systems Except as stated in HPI: all other systems reviewed are Neg Objective Alert: Yes [place]: Person, Place Mood: Calm Affect: Blunted, Other (perseverative) Memory Intact: Comment (very poor) Hallucinations: Other (denies) Delusions: No Delusion Type: Paranoid (fixed delusion that he built the hospital), Other ( somewhat vigilant) Suicidal: Ideation (denies) Homicidal: Ideation (denies) Insight/Judgment Very poor Vitals/IOs Vital Signs Date Time Temp Pulse Resp B/P Pulse Ox O2 Delivery O2 Flow Rate FiO2 11/30/16 06:06 98.5 69 20 121/56 98 Intake and Output 11/29/16 11/29/16 11/30/16 08:00 16:00 00:00 Intake Total 1440 ml Balance 1440 ml Assessment & Plan Problem List: (1) Dementia ICD Code: F03.90 Assessment & Plan Estimated LOS: days patient continues confused demented intrusive somewhat paranoid somewhat obsessing over his van his money and his Justification for Cont. Inpt. 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
--- NOTE | 2016-11-30 13:27 | PD.TTN ---
Present for Treatment Team Treatment Team Staff: Provider (Dr. Haile), Nurse (Chris), Psych Therapist ( TIM Rico), Other Clinician (ec. Cassandra therapy) Patient Problems 1. Discharge planning 2. Medication compliance 3. Knowledge deficit 4. Lack of coping skills Progress Toward Goals Provider Input: Dr. Haile requested an update regarding patient's medication compliance and behavior on the unit. Nurse Input: Chris reported the patient remains delusional related to his van and stating that he "built [place]." According to Chris, the patient slept well last night. Psych Therapist Input: Counselor reported that I continue to communicate with family and placement will be difficult as patient is highly resistive to going to an [facility]. Other Clinican Input: Per Cassandra, patient is not participating in recreational therapy groups. Documentation Scribe: TIM Clarke Date Resolved: Nov 29, 2016 Susan Toledo Nov 30, 2016 13:27
[2016-11-30 17:58] VITALS: BP 146/80; PULSE 73; RESP 20; O2SAT 100
[2016-11-30] MEDS: OLANZapine IM 10 MG VIAL IM SCH (21:00)
[2016-11-30] MEDS: OLANZapine ODT 15 MG TAB PO SCH (21:21)
[2016-12-01 06:00] VITALS: BP 152/93; PULSE 99; RESP 18; TEMP 97.8
[2016-12-01] MEDS: HALOPERIDOL 2 MG TAB PO SCH ×2 (07:33→16:00)
[2016-12-01] MEDS: FLUoxetine HCL LIQUID 20 MG/5 ML CUP PO SCH (07:34)
[2016-12-01] MEDS: HALOPERIDOL LACTATE 5 MG/ML AMP IM SCH ×2 (08:00→16:00)
--- NOTE | 2016-12-01 10:57 | HHI.PYPN ---
Subjective Remarks Patient seen in his room with nurse Loving, chart review, patient compliant medications. Patient continues to focus perseverate on his van in his finances his wishes to be discharged. No other appears to be a slight decrease in the intensity of this and the intrusiveness of this. For now continue treatment Review of Systems Except as stated in HPI: all other systems reviewed are Neg Objective Alert: Yes [place]: Person, Place Mood: Calm Affect: Blunted, Other (perseverative) Memory Intact: Comment (very poor) Hallucinations: Other (denies) Delusions: No Delusion Type: Paranoid (fixed delusion that he built the hospital), Other ( somewhat vigilant) Suicidal: Ideation (denies) Homicidal: Ideation (denies) Insight/Judgment Very poor Vitals/IOs Vital Signs Date Time Temp Pulse Resp B/P Pulse Ox O2 Delivery O2 Flow Rate FiO2 12/01/16 06:00 97.8 99 18 152/93 11/30/16 17:58 100 Intake and Output 11/30/16 11/30/16 12/01/16 08:00 16:00 00:00 Intake Total 720 ml 840 ml Balance 720 ml 840 ml Assessment & Plan Problem List: (1) Dementia ICD Code: F03.90 Assessment & Plan Estimated LOS: days patient continues confused and demented somewhat less intrusive today. Patient compliant medication. Justification for Cont. Inpt. 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
[2016-12-01 18:00] VITALS: BP 140/62; PULSE 94; RESP 20; TEMP 97.6; O2SAT 98
[2016-12-01] MEDS: OLANZapine IM 10 MG VIAL IM SCH (21:00)
[2016-12-01] MEDS: OLANZapine ODT 15 MG TAB PO SCH (22:05)
[2016-12-02 05:59] VITALS: BP 109/70; PULSE 73; RESP 16; TEMP 98
[2016-12-02] MEDS: HALOPERIDOL 2 MG TAB PO SCH ×2 (08:00→16:33)
[2016-12-02] MEDS: FLUoxetine HCL LIQUID 20 MG/5 ML CUP PO SCH (09:00)
--- NOTE | 2016-12-02 11:20 | HHI.PYPN ---
Subjective Remarks Patient seen in day room with nurse Ranjeet, chart reviewed patient with mixed compliance of medication patient continues to perseverate on his van on his finances and why he is here continues with no insight into his issues for now continue treatment Review of Systems Except as stated in HPI: all other systems reviewed are Neg Objective Alert: Yes [place]: Person, Place Mood: Calm Affect: Blunted, Other (perseverative) Memory Intact: Comment (very poor) Hallucinations: Other (denies) Delusions: No Delusion Type: Paranoid (fixed delusion that he built the hospital), Other ( somewhat vigilant) Suicidal: Ideation (denies) Homicidal: Ideation (denies) Insight/Judgment Very poor Vitals/IOs Vital Signs Date Time Temp Pulse Resp B/P Pulse Ox O2 Delivery O2 Flow Rate FiO2 12/02/16 05:59 98.0 73 16 109/70 12/01/16 18:00 98 Intake and Output 12/01/16 12/01/16 12/02/16 08:00 16:00 00:00 Intake Total 360 ml 360 ml 1470 ml Balance 360 ml 360 ml 1470 ml Assessment & Plan Problem List: (1) Dementia ICD Code: F03.90 Assessment & Plan Estimated LOS: days patient continues demented confused at times somewhat intrusive and irritable. But slightly softer today Justification for Cont. Inpt. At this time patient will decompensate with placed a lower level of care Discharge Planning To be determined Problem Qualifiers (1) Dementia: Qualified Code: G30.1 - Late onset Alzheimer's disease without behavioral disturbance Gregorio Haile MD Dec 02, 2016 11:20
[2016-12-02] MEDS: HALOPERIDOL LACTATE 5 MG/ML AMP IM SCH ×2 (11:27→16:00)
[2016-12-02 17:44] VITALS: BP 162/88; PULSE 80; RESP 18; TEMP 98.6; O2SAT 97
[2016-12-02 20:00] VITALS: BP 137/62
[2016-12-02] MEDS: OLANZapine ODT 15 MG TAB PO SCH (20:23)
[2016-12-02] MEDS: OLANZapine IM 10 MG VIAL IM SCH (20:25)
[2016-12-03 07:16] VITALS: BP 120/67; PULSE 63; RESP 17; TEMP 98; O2SAT 96
[2016-12-03] MEDS: HALOPERIDOL LACTATE 5 MG/ML AMP IM SCH ×2 (08:00→16:00)
[2016-12-03] MEDS: HALOPERIDOL 2 MG TAB PO SCH ×2 (08:58→16:33)
[2016-12-03] MEDS: FLUoxetine HCL LIQUID 20 MG/5 ML CUP PO SCH (08:58)
--- NOTE | 2016-12-03 12:54 | HHI.PYPN ---
Subjective Remarks Patient seen in [place] he with nurse Pollack, chart review, patient compliant medications. Patient continues to perseverate on his van, finances, desire to be discharged. However it appears there is potential for a placement on Wednesday 12/06. This of being at "[facility]" in [place] for now continue treatment no change Review of Systems Except as stated in HPI: all other systems reviewed are Neg Objective Alert: Yes [place]: Person, Place Mood: Calm Affect: Blunted, Other (perseverative) Memory Intact: Comment (very poor) Hallucinations: Other (denies) Delusions: No Delusion Type: Paranoid (fixed delusion that he built the hospital), Other ( somewhat vigilant) Suicidal: Ideation (denies) Homicidal: Ideation (denies) Insight/Judgment Very poor Vitals/IOs Vital Signs Date Time Temp Pulse Resp B/P Pulse Ox O2 Delivery O2 Flow Rate FiO2 12/03/16 07:16 98.0 63 17 120/67 96 Intake and Output 12/02/16 12/02/16 12/03/16 08:00 16:00 00:00 Intake Total 120 ml 360 ml 630 ml Balance 120 ml 360 ml 630 ml Assessment & Plan Problem List: (1) Dementia ICD Code: F03.90 Assessment & Plan Estimated LOS: days patient remains confused demented somewhat intrusive, though the intensity of his affect is softening. His somewhat more easily redirectable. It appears there may be a placement on Wednesday 12/06 Justification for Cont. Inpt. At this time patient may decompensate if not placed in an appropriate level of care Discharge Planning To be determined Problem Qualifiers (1) Dementia: Qualified Code: G30.1 - Late onset Alzheimer's disease without behavioral disturbance Gregorio Haile MD Dec 03, 2016 12:54
[2016-12-03] MEDS: OLANZapine IM 10 MG VIAL IM SCH (21:00)
[2016-12-03] MEDS: OLANZapine ODT 15 MG TAB PO SCH (21:38)
[2016-12-04 06:08] VITALS: BP 130/56; PULSE 58; RESP 18; TEMP 97.8; O2SAT 98
[2016-12-04] MEDS: HALOPERIDOL LACTATE 5 MG/ML AMP IM SCH ×2 (08:00→16:00)
[2016-12-04] MEDS: FLUoxetine HCL LIQUID 20 MG/5 ML CUP PO SCH (09:51)
[2016-12-04] MEDS: HALOPERIDOL 2 MG TAB PO SCH ×2 (09:52→16:27)
--- NOTE | 2016-12-04 13:11 | HHI.PYPN ---
Subjective Remarks Patient was seen and case discussed with nursing. Patient is elevated with pressured speech. He has various caodaism preoccupations concerning got in the devil. Difficult to redirect during the interview. Poor eye contact. Told nursing earlier he felt he was "forgetting things." Remains hesitant with medications Objective Alert: Yes [place]: Person, Place Mood: Anxious Affect: Other (perseverative) Memory Intact: Comment (very poor) Hallucinations: Other (denies) Delusions: No Delusion Type: Paranoid (caodaism preoccupations), Other (somewhat vigilant) Suicidal: Ideation (denies) Homicidal: Ideation (denies) Insight/Judgment Poor Vitals/IOs Vital Signs Date Time Temp Pulse Resp B/P Pulse Ox O2 Delivery O2 Flow Rate FiO2 12/04/16 06:08 97.8 58 18 130/56 98 Intake and Output 12/03/16 12/03/16 12/03/16 07:59 15:59 23:59 Intake Total 480 ml 1720 ml Balance 480 ml 1720 ml Assessment & Plan Problem List: (1) Dementia ICD Code: F03.90 Assessment & Plan Continue current treatment plan Justification for Cont. Inpt. Patient will decompensate in a less restrictive setting Problem Qualifiers (1) Dementia: Qualified Code: G30.1 - Late onset Alzheimer's disease without behavioral disturbance Anuel Leon DO Dec 04, 2016 13:11
[2016-12-04] MEDS: OLANZapine IM 10 MG VIAL IM SCH (20:31)
[2016-12-04] MEDS: OLANZapine ODT 15 MG TAB PO SCH (20:31)
[2016-12-05 06:00] VITALS: BP_SYST 141; BP_SYST 165; BP_DIAS 68; BP_DIAS 74; PULSE 71; PULSE 74; RESP 18; TEMP 97.3; TEMP 99.1; O2SAT 94; O2SAT 98
[2016-12-05] MEDS: HALOPERIDOL LACTATE 5 MG/ML AMP IM SCH ×2 (08:00→16:00)
[2016-12-05] MEDS: FLUoxetine HCL LIQUID 20 MG/5 ML CUP PO SCH (08:56)
[2016-12-05] MEDS: HALOPERIDOL 2 MG TAB PO SCH ×2 (08:56→16:31)
--- NOTE | 2016-12-05 11:49 | HHI.PYPN ---
Subjective Remarks Patient was seen and case discussed with nursing. Patient remains various yazdanism preoccupations. Today he is focused on his previous room down the hallway. He is perseverative than him and his have items in that room. Becomes irritable when I would not continue an extended conversation about it. Per nursing was perseverative yesterday afternoon about lutheran pants Compliant with medications. Objective Alert: Yes [place]: Person, Place Mood: Anxious Affect: Other (perseverative) Memory Intact: Comment (very poor) Hallucinations: Other (denies) Delusions: No Delusion Type: Paranoid (yazdanism preoccupations), Other (somewhat vigilant) Suicidal: Ideation (denies) Homicidal: Ideation (denies) Insight/Judgment poor Vitals/IOs Vital Signs Date Time Temp Pulse Resp B/P Pulse Ox O2 Delivery O2 Flow Rate FiO2 12/05/16 06:00 97.3 71 18 165/74 98 Intake and Output 12/04/16 12/04/16 12/05/16 08:00 16:00 00:00 Intake Total 240 ml 360 ml 960 ml Balance 240 ml 360 ml 960 ml Assessment & Plan Problem List: (1) Dementia ICD Code: F03.90 Assessment & Plan Continue current treatment plan Justification for Cont. Inpt. Patient would decompensate in a less restrictive setting Problem Qualifiers (1) Dementia: Qualified Code: G30.1 - Late onset Alzheimer's disease without behavioral disturbance Anuel Leon DO Dec 05, 2016 11:49
[2016-12-05 16:42] VITALS: PULSE 60; RESP 18; TEMP 97.9; O2SAT 99
[2016-12-05] MEDS: OLANZapine ODT 15 MG TAB PO SCH (20:16)
[2016-12-05 20:45] VITALS: BP 164/78; PULSE 63; RESP 17; TEMP 97.5; O2SAT 99
[2016-12-05] MEDS: OLANZapine IM 10 MG VIAL IM SCH (21:00)
[2016-12-06 06:28] VITALS: BP 143/92; PULSE 73; RESP 16; TEMP 98.7; O2SAT 99
[2016-12-06] MEDS: HALOPERIDOL LACTATE 5 MG/ML AMP IM SCH ×2 (07:28→15:07)
[2016-12-06] MEDS: FLUoxetine HCL LIQUID 20 MG/5 ML CUP PO SCH (07:50)
[2016-12-06] MEDS: HALOPERIDOL 2 MG TAB PO SCH ×2 (07:50→15:07)
--- NOTE | 2016-12-06 17:19 | HHI.PYPN ---
Subjective Remarks Patient discussed with treatment team, patient seen on unit. Chart reviewed. Patient compliant medication. Patient continues diffusely confused disoriented at times somewhat intrusive vigilant and irritating at times appearing somewhat intimidating also. Will increase Haldol to 3 mg twice a day Review of Systems Except as stated in HPI: all other systems reviewed are Neg Objective Alert: Yes [place]: Person, Place Mood: Anxious Affect: Other (perseverative) Memory Intact: Comment (very poor) Hallucinations: Other (denies) Delusions: No Delusion Type: Paranoid (anglican preoccupations), Other (somewhat vigilant) Suicidal: Ideation (denies) Homicidal: Ideation (denies) Insight/Judgment Very poor Vitals/IOs Vital Signs Date Time Temp Pulse Resp B/P Pulse Ox O2 Delivery O2 Flow Rate FiO2 12/06/16 06:28 98.7 73 16 143/92 99 Intake and Output 12/05/16 12/05/16 12/06/16 08:00 16:00 00:00 Intake Total 0 ml 420 ml Balance 0 ml 420 ml Assessment & Plan Problem List: (1) Dementia ICD Code: F03.90 Assessment & Plan Estimated LOS: days patient continues dementia confused irritating and somewhat intrusive she medication adjustment above Justification for Cont. Inpt. At this time patient would significantly decompensate if placed in a lower level of care Discharge Planning Be determined Problem Qualifiers (1) Dementia: Qualified Code: G30.1 - Late onset Alzheimer's disease without behavioral disturbance Gregorio Haile MD Dec 06, 2016 17:19
[2016-12-06 18:00] VITALS: BP 139/68; PULSE 84; RESP 18; TEMP 97.8; O2SAT 98
[2016-12-06] MEDS: OLANZapine ODT 15 MG TAB PO SCH (21:00)
[2016-12-06] MEDS: OLANZapine IM 10 MG VIAL IM SCH (21:00)
[2016-12-07 06:00] VITALS: BP 116/62; PULSE 69; RESP 17; TEMP 97.8; O2SAT 98
[2016-12-07] MEDS: HALOPERIDOL LACTATE 5 MG/ML AMP IM SCH ×2 (08:00→16:00)
[2016-12-07] MEDS: HALOPERIDOL 2 MG TAB PO SCH (08:24)
[2016-12-07] MEDS: FLUoxetine HCL LIQUID 20 MG/5 ML CUP PO SCH (08:24)
--- NOTE | 2016-12-07 10:45 | HHI.PYPN ---
Subjective Remarks She is seen in [place] with floor staff, chart reviewed, patient compliant medications. Though he needs at times encouragement. Patient continues intrusive perseverating on his family and his finances and his need to be discharged. Continues and intimidating but the affect is somewhat softer. For now continue with medication changes as mentioned yesterday Review of Systems Except as stated in HPI: all other systems reviewed are Neg Objective Alert: Yes [place]: Person, Place Mood: Anxious Affect: Other (perseverative) Memory Intact: Comment (very poor) Hallucinations: Other (denies) Delusions: No Delusion Type: Paranoid (methodist preoccupations), Other (somewhat vigilant) Suicidal: Ideation (denies) Homicidal: Ideation (denies) Insight/Judgment Poor Vitals/IOs Vital Signs Date Time Temp Pulse Resp B/P Pulse Ox O2 Delivery O2 Flow Rate FiO2 12/07/16 06:00 97.8 69 17 116/62 98 Intake and Output 12/06/16 12/06/16 12/07/16 08:00 16:00 00:00 Intake Total 240 ml 240 ml 1320 ml Balance 240 ml 240 ml 1320 ml Assessment & Plan Problem List: (1) Dementia ICD Code: F03.90 Assessment & Plan Estimated LOS: days patient continues confused demented sometimes somewhat intrusive intimidating. Patient compliant medication Justification for Cont. Inpt. At this time patient will decompensate if place to the lower level of care Discharge Planning To be determined Problem Qualifiers (1) Dementia: Qualified Code: G30.1 - Late onset Alzheimer's disease without behavioral disturbance Gregorio Haile MD Dec 07, 2016 10:44
[2016-12-07] MEDS: HALOPERIDOL 1 MG TAB PO SCH (16:00)
[2016-12-07] MEDS: OLANZapine ODT 15 MG TAB PO SCH (20:14)
[2016-12-07] MEDS: OLANZapine IM 10 MG VIAL IM SCH (21:00)
[2016-12-08 06:00] VITALS: BP 138/67; PULSE 64; RESP 17; TEMP 98.5; O2SAT 98
[2016-12-08] MEDS: HALOPERIDOL LACTATE 5 MG/ML AMP IM SCH (08:00)
[2016-12-08] MEDS: FLUoxetine HCL LIQUID 20 MG/5 ML CUP PO SCH (09:00)
[2016-12-08] MEDS: HALOPERIDOL 1 MG TAB PO SCH (09:14)
[2016-12-08] MEDS ORDERED: OLANZ15 PO (11:45)
[2016-12-08] MEDS ORDERED: FLUO20SO PO (11:45)
[2016-12-08] MEDS ORDERED: HALO1TAB PO (11:45)
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
== END 2016-12-08 13:10 | DRG 57 ==
LOC: NEPD 19:03 → NEDA 11-06 10:35 → H250 11-06 10:39 → H270 11-19 15:57 → H250 11-19 19:46
PROVIDERS: ADMIT Psychiatry & Neurology Psychiatry; ATTEND Psychiatry & Neurology Psychiatry
DX: G30.1 Alzheimer's disease with late onset (principal); F02.80 Dementia in other diseases classified elsewhere, unspecified severity, without behavioral disturbance, psychotic disturbance, mood disturbance, and anxiety; R03.0 Elevated blood-pressure reading, without diagnosis of hypertension; V43.52XA Car driver injured in collision with other type car in traffic accident, initial encounter; Y92.410 Unspecified street and highway as the place of occurrence of the external cause; Y93.89 Activity, other specified; Z91.14 Patient's other noncompliance with medication regimen
CPT/HCPCS: 71010; 80053; 80061; 80307; 81001; 84443; 85025; 96372; J1630; J2060